=== PATIENT | male | born 1965 | race Caucasian/White ===

== ENCOUNTER → 2017-04-05 | Outpatient (CLI) | payer MEDICAID | END | disposition home or self-care (01) | LOC: CFH 16:14 | PROVIDERS: ATTEND Orthopaedic Surgery Orthopaedic Surgery of the Spine | DX: M51.16 Intervertebral disc disorders with radiculopathy, lumbar region (principal); M48.06 Spinal stenosis, lumbar region | CPT/HCPCS: 72148 ==

== ENCOUNTER → 2017-06-04 | Outpatient (CLI) | payer MEDICAID ==
[~2017-06-04] MED LIST: ASPI-621 PO; CLON-365 PO; HYDR25TA6 PO; LISI-167 PO; MELO15TA24 PO; OMEG100023 PO; OXYC-307 PO
[2017-06-04 10:32] LABS: HEMATOCRIT 42.5 % (39.2-51.8); HEMOGLOBIN 14.6 g/dL (13.7-18.0); WHITE BLOOD COUNT 5.8 x10^3/uL (3.4-10)
[2017-06-04 10:42] LABS: ASPARTATE AMINO TRANSFERASE 10 U/L (15-37); BLOOD UREA NITROGEN 22 mg/dL (7-18)
== END | disposition home or self-care (01) ==
LOC: STAR 09:19
PROVIDERS: ATTEND Orthopaedic Surgery Orthopaedic Surgery of the Spine
DX: Z01.818 Encounter for other preprocedural examination (principal); M96.1 Postlaminectomy syndrome, not elsewhere classified; M43.16 Spondylolisthesis, lumbar region; M48.061 Spinal stenosis, lumbar region without neurogenic claudication
CPT/HCPCS: 36415; 71020; 80053; 81003; 85025; 87081; 93005

== ENCOUNTER 2017-06-12 07:20 | Observation (INO) | payer MEDICAID ==
[~2017-06-12] VITALS: Ht 169.4 cm; Wt 82.9 kg
[2017-06-12] MEDS ORDERED: LIDOCAINE 1%, 2ML SQ PRN (08:00)
[2017-06-12] MEDS ORDERED: LIDOCAINE 1%, 2ML ONE (08:01)
[2017-06-12] MEDS: LACTATED RINGERS 1,000 ML IV SCH ×2 (08:17→15:02)
[2017-06-12] MEDS ORDERED: FLU VACC QS2017-18 (36MOS+) UP/PF 0.5 ML IM-VACC ONE (08:30)
[2017-06-12] MEDS ORDERED: FENTANYL PF 100 MCG/2ML IV ONE (08:30)
[2017-06-12] MEDS ORDERED: PNEUMOCOCCAL 23 VACCINE IM-VACC ONE (08:30)
[2017-06-12] MEDS ORDERED: MIDAZOLAM 1 MG/ML, 2ML ONE ×2 (08:53→11:48)
[2017-06-12] MEDS ORDERED: KETAMINE 10 MG/ML, 20ML ONE (08:53)
[2017-06-12] MEDS ORDERED: TRANEXAMIC ACID 100 MG/ML, 10ML ONE ×2 (08:54)
[2017-06-12] MEDS ORDERED: THROMBIN 5,000 UNIT VIAL TP ONE (08:54)
[2017-06-12] MEDS ORDERED: FENTANYL PF 250 MCG/5ML ONE (08:54)
[2017-06-12] MEDS ORDERED: BACITRACIN 50,000 UNIT ONE (08:55)
[2017-06-12] MEDS ORDERED: VANCOMYCIN 1,000 MG ONE (08:55)
[2017-06-12] MEDS ORDERED: PROPOFOL 10 MG/ML, 20ML ONE (08:56)
[2017-06-12] MEDS ORDERED: LIDOCAINE GEL 2%, 5ML ONE (08:58)
[2017-06-12] MEDS ORDERED: SUCCINYLCHOLINE 20 MG/ML, 10ML ONE (08:59)
[2017-06-12] MEDS ORDERED: BUPIVACAINE LIPOSOME/PF INFIL ONE (09:02)
[2017-06-12] MEDS ORDERED: GLYCOPYRROLATE 0.2MG/1ML, 5ML ONE (09:12)
[2017-06-12] MEDS ORDERED: VASOPRESSIN 20 UNIT/ML, 1ML ONE (09:12)
[2017-06-12] MEDS ORDERED: PHENYLEPHRINE 10 MG/ML ONE (09:12)
[2017-06-12] MEDS ORDERED: ONDANSETRON 2MG/ML, 2ML ONE (09:17)
[2017-06-12] MEDS ORDERED: DEXAMETHASONE 4 MG/ML, 1ML ONE (09:17)
[2017-06-12] MEDS ORDERED: HYDROmorphone 1 MG/ML, 1ML ONE (09:32)
[2017-06-12] MEDS ORDERED: BUPIVACAINE/PF 0.5% ONE (09:54)
[2017-06-12] MEDS ORDERED: EPINEPHRINE 1 MG/ML, 1ML ONE (09:54)
[2017-06-12] MEDS ORDERED: ONDANSETRON 2MG/ML, 2ML IVPush PRN ×2 (10:00→11:30)
[2017-06-12] MEDS ORDERED: OXYcodone 5 MG/5 ML ORAL.SOL UDC PO PRN (10:00)
[2017-06-12] MEDS ORDERED: MIDAZOLAM 1 MG/ML, 2ML IV PRN (10:00)
[2017-06-12] MEDS ORDERED: PROMETHAZINE 25 MG/ML, 1ML IV PRN (10:00)
[2017-06-12] MEDS ORDERED: EPHEDRINE 50 MG/ML, 1ML IVPush PRN (10:00)
[2017-06-12] MEDS ORDERED: MEPERIDINE/PF 25MG/0.5ML IVPush PRN (10:00)
[2017-06-12] MEDS ORDERED: LABETALOL 5MG/ML, 20ML IV PRN (10:00)
[2017-06-12] MEDS ORDERED: FENTANYL PF 100 MCG/2ML ONE ×2 (10:50→11:39)
[2017-06-12] MEDS ORDERED: HYDROmorphone 1 MG/ML, 1ML IVPush PRN (11:30)
[2017-06-12] MEDS ORDERED: HYDROcodone/APAP 10/325 MG TABLET PO PRN (11:30)
[2017-06-12] MEDS ORDERED: ACETAMINOPHEN 325 MG TABLET PO PRN (11:30)
[2017-06-12] MEDS ORDERED: BISACODYL 10 MG SUPP PR PRN (11:30)
[2017-06-12] MEDS ORDERED: MAGNESIUM HYDROXIDE 8%, 30ML UDC PO PRN (11:30)
[2017-06-12] MEDS ORDERED: SENNA/DOCUSATE TABLET PO PRN (11:30)
[2017-06-12] MEDS ORDERED: PHARMACY MAY ADJ FOR RENAL FX MC PRN (11:30)
[2017-06-12] MEDS ORDERED: HYDROmorphone 2 MG/ML, 1ML ONE ×2 (11:39→12:34)
[2017-06-12] MEDS ORDERED: ACETAMINOPHEN 650 MG/20.3 ML UDC ONE (11:39)
[2017-06-12] MEDS ORDERED: OXYcodone 5 MG/5 ML ORAL.SOL UDC ONE (11:39)
[2017-06-12] MEDS: FENTANYL PF 100 MCG/2ML IV PRN ×2 (11:41→11:47)
[2017-06-12] MEDS: HYDROmorphone 1 MG/ML, 1ML IV PRN ×6 (11:55→12:56)
[2017-06-12] MEDS ORDERED: DIAZEPAM 5 MG/ML, 2ML IVPush ONE (12:00)
[2017-06-12] MEDS ORDERED: OXYcodone/APAP 10/325MG TABLET PO SCH (12:00)
[2017-06-12] MEDS ORDERED: MEPERIDINE/PF 25MG/0.5ML ONE (12:20)
[2017-06-12] MEDS: OXYcodone/APAP 10/325MG TABLET PO PRN ×2 (16:40→20:26)
[2017-06-12] MEDS: CEFAZOLIN PMX 1GM/50ML 50 ML IVPB SCH (17:12)
[2017-06-12 19:10] VITALS: BP 104/67
[2017-06-12] MEDS: DIAZEPAM 5 MG TABLET PO PRN (20:26)
[2017-06-13] MEDS: OXYcodone/APAP 10/325MG TABLET PO PRN ×3 (00:26→08:42)
[2017-06-13] MEDS: CEFAZOLIN PMX 1GM/50ML 50 ML IVPB SCH (00:28)
[2017-06-13] MEDS: DIAZEPAM 5 MG TABLET PO PRN ×2 (02:26→08:42)
[2017-06-13 02:27] VITALS: BP 95/55
[2017-06-13 06:46] VITALS: BP 98/58
[2017-06-13] MEDS ORDERED: LISINOPRIL 10 MG TABLET PO SCH (09:00)
[2017-06-13] MEDS ORDERED: HYDROCHLOROTHIAZIDE 25 MG TABLET PO SCH (09:00)
[2017-06-13] MEDS ORDERED: ASPIRIN 81 MG TABLET EC PO SCH (09:00)
== END 2017-06-13 12:15 | disposition home or self-care (01) ==
LOC: INTOOBSV 07:20 → ORIP 07:20 → 3NW 13:13 → 4NOR 13:29 → DCLOUNGE 06-13 12:02
PROVIDERS: ADMIT Orthopaedic Surgery Orthopaedic Surgery of the Spine; ATTEND Orthopaedic Surgery Orthopaedic Surgery of the Spine
DX: M51.36 Other intervertebral disc degeneration, lumbar region (principal); M47.9 Spondylosis, unspecified; M48.061 Spinal stenosis, lumbar region without neurogenic claudication
CPT/HCPCS: 20931; 22558; 22845; 22853; 72100; 90471; 90472; 90686; 90732; 96365; 96375; C1713; C1760; C1762; C1776; G0378; J0171; J0330; J0690; J1100; J1170; J2175; J2250; J2370; J2405; J2704; J3010; J3360; J3490; J7120; C9290; J3370